=== PATIENT | female | born 1985 | race Caucasian/White ===

== ENCOUNTER 2018-07-26 07:12 | Emergency (ER) | payer MEDICAID ==
[2018-07-26 07:18] VITALS: BMI 35.2
--- NOTE | 2018-07-26 07:40 | ED PDOC ---
Arrival/HPI - General Chief Complaint: Chest Pain Time Seen by Provider: 07/26/18 07:39 Historian: Patient - History of Present Illness Symptom Onset: Gradual Activities at Onset: Sleeping Associated Symptoms (Text): 33yo female, history of 2x cardiac cath, comes to ER reporting a mid-sternal chest pain, radiating to her left chest and into her face since 6:30 AM today. Patient reports associated "breathing problems." She states the pain is still present. Otherwise, she denies any diaphoresis, nausea, vomiting, and offers no additional medical complaints. Patient is not on any medications on a daily basis. PMD: None Past Medical History - Provider Review Nursing Documentation Reviewed: Yes - Infectious Disease Hx of Infectious Diseases: None - Tetanus Immunization Tetanus Immunization: Unknown - Cardiac Hx Hypertension: No - Pulmonary Hx Respiratory Disorders: No - Neurological Hx Seizures: No - HEENT Hx HEENT Disorder: No - Renal Hx Renal Disorder: No - Endocrine/Metabolic Hx Endocrine Disorders: No - Hematological/Oncological Hx Blood Disorders: No - Integumentary Hx Dermatological Disorder: No - Musculoskeletal/Rheumatological Hx Falls: No - Gastrointestinal Hx Gastrointestinal Disorders: No - Genitourinary/Gynecological Hx Sexually Transmitted Diseases: No - Psychiatric Hx Psychophysiologic Disorder: No Hx Substance Use: No - Surgical History Hx Cardiac Catheterization: Yes (x [address] Gallego) Other/Comment: c section - Anesthesia Hx Anesthesia: Yes Hx Anesthesia Reactions: No Hx Malignant Hyperthermia: No - Suicidal Assessment Feels Threatened In Home Enviroment: No Family/Social History - Physician Review Nursing Documentation Reviewed: Yes Family/Social History: No Known Family HX Smoking Status: Light Smoker < 10 Cigarettes Daily Hx Alcohol Use: Yes (drinks alcohol "sometimes") Hx Substance Use: No Hx Substance Use Treatment: No Allergies/Home Meds Allergies/Adverse Reactions: Allergies No Known Allergies Allergy (Verified 07/14/17 16:50) Review of Systems - Physician Review All systems were reviewed & negative as marked: Yes (as per HPI) - Review of Systems Constitutional: absent: Other (sweats) Respiratory: Other (difficulty breathing) Cardiovascular: Chest Pain Gastrointestinal: absent: Vomiting Physical Exam - Physical Exam Narrative Physical Exam (Text): Gen: VS reviewed, alert, well developed, well nourished, nontoxic, mild distress. ENT: normal pharynx. Eye: EOMI, PERRL. Neck: no JVD, supple, no adenopathy. CV: regular rate, regular rhythm, no rubs, no murmur, no gallops, S1, S2, pulses equal and strong. (+) Reproducible mid-sternal chest wall tenderness Pulm: no distress, clear to auscultation, no wheeze, no rhonchi, breath sounds equal, no rales. Abd: soft, nontender, no guarding, no rebound, no rigidity, normal bowel sounds. Ext: no edema. Skin: good color, no rash, no cyanosis. Psych: responds appropriately to questions, normal affect. Neuro: oriented x 3, CN2-12 intact grossly, motor intact, sensation intact. Vital Signs Temp Pulse Resp BP Pulse Ox 07/26/18 07:18 97.7 F 75 16 130/85 97 Medical Decision Making ED Course and Treatment: Impression: 33yo female, with complaints of midsternal chest pain Plan: -- Labs -- EKG -- CXR -- Reassess and disposition Prior Visits: Notes and results from previous visits were reviewed. Patient was last seen in the emergency department on 07/14/17 for chest pain, had normal workup and was discharged home. Progress Notes: 07/26/18 07:26 EKG: Normal sinus rhythm; 73BPM Normal QRS Normal axis No acute ST/T wave changes 07/26/18 09:27 Labs reviewed, no clinically significant abnormalities. On reassessment, patient reports her pain has resolved and she is feeling much better. 07/26/18 11:53 Repeat troponin negative. 07/26/18 11:59 low risk chest pain, heart score = 1. patient remained stable throughout ED course. no significant clinically suspicion for PE or aortic dissection. clinical presentation most consistent with chest wall pain. patient discharged in stable condition. - Lab Interpretations Narrative Lab Interpretation (Text): 07/26/18 09:25 Chest X-ray FINDINGS: LUNGS: The lungs are well inflated and clear. PLEURA: No significant pleural effusion identified, no pneumothorax apparent. CARDIOVASCULAR: Normal. OSSEOUS STRUCTURES: No significant abnormalities. VISUALIZED UPPER ABDOMEN: Normal. OTHER FINDINGS: None. IMPRESSION: No active pulmonary disease. - Scribe Statement The provider has reviewed the documentation as recorded by the Manish Freeman Provider Scribe Attestation: All medical record entries made by the Scribe were at my direction and personally dictated by me. I have reviewed the chart and agree that the record accurately reflects my personal performance of the history, physical exam, medical decision making, and the department course for this patient. I have also personally directed, reviewed, and agree with the discharge instructions and disposition. Disposition/Present on Arrival - Present on Arrival Any Indicators Present on Arrival: No History of DVT/PE: No History of Uncontrolled Diabetes: No Urinary Catheter: No History of Decub. Ulcer: No History Surgical Site Infection Following: None - Disposition Have Diagnosis and Disposition been Completed?: Yes Diagnosis: Chest wall pain Disposition: HOME/ ROUTINE Disposition Time: 09:28 Patient Problems: Current Active Problems Problem Status Onset Chest wall pain Acute Condition: IMPROVED Discharge Instructions (ExitCare): Costochondritis (DC), Chest Pain (ED) Additional Instructions: Return for any new or worsening symptoms. 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 DAVID JOHNSON, thank you for letting us take care of you today. Your provider was Dr. Roger Blanco and you were treated for chest pain. The emergency medical care you received today was directed at your acute symptoms. If you were prescribed any medication, please fill it and take as directed. It may take several days for your symptoms to resolve. Return to the Emergency Department if your symptoms worsen, do not improve, or if you have any other problems. Please contact your doctor or call one of the physicians/clinics you have been referred to that are listed on the Patient Visit Information form that is included in your discharge packet. Bring any paperwork you were given at discharge with you along with any medications you are taking to your follow up visit. Our treatment cannot replace ongoing medical care by a primary care provider outside of the emergency department. Thank you for allowing the [facility] team to be part of your care today. If you had an X-Ray or CT scan: A Radiologist will review the ED reading if any change in treatment is needed we will contact you. If you had a blood, urine, or wound culture: It will take several days for the results, if any change in treatment is needed we will contact you. If you had an STI test: It will take 48 hours for the results. Please call after 1 week if you have not heard back. Prescriptions: Ibuprofen [Motrin Tab] 600 mg PO QID #42 tab Referrals: Tucker Stroud MD [Staff Provider] - Follow up with primary Forms: [employer] (Uzbek), WORK NOTE
[2018-07-26 08:03] LABS: BASO # 0.05 K/mm3 (0.0-2.0); BASO % 0.6 % (0.0-3.0); EOS # 0.3 (0.0-0.7); EOS % 3.8 % (1.5-5.0); GRAN # 4.9 (1.4-6.5); GRAN % 56.9 % (50.0-68.0); HEMOGLOBIN 11.5 g/dL (12.0-16.0); LYMPH # 2.8 (1.2-3.4); LYMPH % 32.9 % (22.0-35.0); MEAN CELL VOLUME 82.2 fl (80.0-105.0); MEAN CORPUSCULAR HEMOGLOBIN 26.6 pg (25.0-35.0); MEAN CORPUSCULAR HGB CONC 32.4 g/dl (31.0-37.0); MEAN PLATELET VOLUME 10.5 fl (7.0-11.0); MONO # 0.5 (0.1-0.6); MONO % 5.8 % (1.0-6.0); RBC 4.32 10^6/uL (3.5-6.1); RED CELL DISTRIBUTION WIDTH 13.7 % (11.5-14.5); WHITE BLOOD COUNT 8.6 10^3/ul (4.5-11.0)
[2018-07-26 08:10] LABS: ALB/GLOB RATIO 1.2 (1.1-1.8); ALBUMIN 3.3 g/dL (3.0-4.8); ALT/SGPT 27 U/L (7-56); AST/SGOT 23 U/L (14-36); BLOOD UREA NITROGEN 13 mg/dL (7-21); CALCIUM 8.6 mg/dL (8.4-10.5); GFR NON-AFRICAN AMERICAN > 60; HDL CHOLESTEROL 42 mg/dL (29-60)
[2018-07-26 08:21] LABS: LDL CHOLESTEROL 61 mg/dL (0-129); TROPONIN I < 0.01 ng/mL
[2018-07-26 08:47] LABS: BARBITURATES, UR NEGATIVE (NEGATIVE); BENZODIAZEPINES, UR NEGATIVE (NEGATIVE); OPIATES, UR NEGATIVE (NEGATIVE); PHENCYCLIDINE, UR NEGATIVE (NEGATIVE)
--- NOTE | 2018-07-26 09:10 | RAD ---
Date of service: 07/26/2018 HISTORY: Chest pain COMPARISON: 12/29/2015. FINDINGS: LUNGS: The lungs are well inflated and clear. PLEURA: No significant pleural effusion identified, no pneumothorax apparent. CARDIOVASCULAR: Normal. OSSEOUS STRUCTURES: No significant abnormalities. VISUALIZED UPPER ABDOMEN: Normal. OTHER FINDINGS: None. IMPRESSION: No active pulmonary disease.
--- NOTE | 2018-07-26 11:47 | CARD ---
APPROVED REPORT Date of service: 07/26/2018 EKG Measurement Heart [id number] <Conclusion> Normal sinus rhythm Normal ECG
[2018-07-26 13:29] VITALS: RESP 18
[2018-07-26 13:37] VITALS: BP 129/87; PULSE 82; TEMP 98; O2SAT 98
== END 2018-07-26 12:27 | disposition home or self-care (01) ==
LOC: ED 07:12
DX: R07.89 Other chest pain (principal); F17.210 Nicotine dependence, cigarettes, uncomplicated
CPT/HCPCS: 71045; 80053; 80061; 80320; 80324; 80345; 80346; 80349; 80353; 80358; 80361; 82948; 83992; 84484; 85025; 85378; 93005; 96374; 99285; J1885